=== PATIENT | male | born 1960 | race Native Hawaiian/Other Pacific Islander ===

== ENCOUNTER 2016-09-05 23:34 | Outpatient (CLI) | payer OTHER | END 2016-09-05 23:37 | disposition short-term general hospital (02) | LOC: AMB 23:34 | DX: R41.82 Altered mental status, unspecified (principal) | CPT/HCPCS: A0425; A0427 ==

== ENCOUNTER 2016-09-05 23:54 | Emergency (ER) | payer OTHER | END 2016-09-06 00:05 | disposition left against medical advice (07) | LOC: ED 23:54 | DX: R53.1 Weakness (principal) | CPT/HCPCS: 99281 ==

== ENCOUNTER 2023-01-29 11:38 | Inpatient (IN) | payer OTHER ==
[~2023-01-29] VITALS: Ht 175.3 cm; Wt 121.2 kg
[2023-01-29] VITALS (8 sets, daily range): BP systolic 117–156; BP diastolic 45–83; TEMP 99.3–103.1; Ht 175.3 cm; Wt 121.2 kg
[2023-01-29 12:08] LABS: POTASSIUM 3.1 mmol/L (3.6-5.2)
[2023-01-29 12:14] LABS: PLATELET COUNT 99 K/uL (142-355)
[2023-01-29 12:17] LABS: PARTIAL THROMBOPLASTIN TIME 48.6 SECONDS (23.9-36.7)
[2023-01-29] MEDS ORDERED: OXYC5TAB24 PO (19:08)
[2023-01-29] MEDS ORDERED: FURO40TA93 PO (19:09)
[2023-01-29] MEDS ORDERED: KLOR-CON M2020 MEQ PO (19:10)
[2023-01-29] MEDS ORDERED: HYDR25CA25 PO (19:10)
[2023-01-29] MEDS ORDERED: TAMS0.4C PO (19:11)
[2023-01-30 03:43] VITALS: BP 114/68; TEMP 98.9
[2023-01-30 05:03] LABS: PLATELET COUNT 68 K/uL (142-355)
[2023-01-30 05:20] LABS: POTASSIUM 3.1 mmol/L (3.6-5.2)
[2023-01-30 08:00] VITALS: BP 151/76; TEMP 98.5
[2023-01-30 12:00] VITALS: BP 120/78; TEMP 98.5
[2023-01-30 16:00] VITALS: BP 147/70; TEMP 98.3
[2023-01-30 19:38] VITALS: BP 138/71; TEMP 99.6
[2023-01-30 23:45] VITALS: BP 113/71; TEMP 98.9
[2023-01-31 03:38] VITALS: BP 123/78; TEMP 98.6
[2023-01-31 03:56] LABS: POTASSIUM 3.2 mmol/L (3.6-5.2)
[2023-01-31 04:00] LABS: PLATELET COUNT 71 K/uL (142-355)
[2023-01-31 08:00] VITALS: BP 148/80; TEMP 98.7
[2023-01-31 12:00] VITALS: BP 138/78; TEMP 98.1
[2023-01-31 16:00] VITALS: BP 107/64; TEMP 98.8
[2023-01-31 19:38] VITALS: BP 143/75; TEMP 98.9
[2023-02-01] VITALS: BP 117/61; TEMP 98.9
[2023-02-01 06:36] LABS: PLATELET COUNT 76 K/uL (142-355)
[2023-02-01 06:47] LABS: POTASSIUM 3.1 mmol/L (3.6-5.2)
[2023-02-01 07:38] VITALS: BP 120/70; TEMP 98
[2023-02-01 12:00] VITALS: BP 114/77; TEMP 98.3
== END 2023-02-01 15:22 | disposition home or self-care (01) | DRG 300 ==
LOC: ED 11:38 → MED/SURG 12:41
PROVIDERS: Internal Medicine Endocrinology, Diabetes & Metabolism; ADMIT Family Medicine; ATTEND Internal Medicine
DX: I87.2 Venous insufficiency (chronic) (peripheral) (principal); R78.81 Bacteremia; B95.4 Other streptococcus as the cause of diseases classified elsewhere; R60.0 Localized edema; R55 Syncope and collapse; R42 Dizziness and giddiness; R50.9 Fever, unspecified; E87.6 Hypokalemia; E83.42 Hypomagnesemia; I50.9 Heart failure, unspecified; N40.0 Benign prostatic hyperplasia without lower urinary tract symptoms
CPT/HCPCS: 36415; 36600; 80048; 80053; 80202; 80307; 80320; 81002; 82550; 82805; 83605; 83735; 83880; 84484; 85027; 85610; 85730; 87040; 87077; 87185; 87186; 87205; 93005; 96361; 96365; 96366; 96367; 99284; J0132; J0696; J1650; J1940; J3370